=== PATIENT | male | born 1995 | race Caucasian/White ===

== ENCOUNTER 2017-05-26 12:00 | Emergency (ER) | payer BC ==
[2017-05-26 12:14] VITALS: BP 104/86
--- NOTE | 2017-05-26 12:47 | UC ---
Throat Pain/Nasal Drew HPI - HPI Summary HPI Summary: FEVER, SORE THROAT AND FATIGUE SINCE YESTERDAY. NO ABDOMINAL PAIN. NO RASHES. PATIENT IS A PHYS ED STUDENT. - History of Current Complaint Chief Complaint: UCGeneralIllness Stated Complaint: FEVER ST Time Seen by Provider: 05/26/17 12:17 Hx Obtained From: Patient Onset/Duration: Gradual Onset, Lasting Days Severity: Moderate Cough: None Associated Signs & Symptoms: Positive: Hoarseness, Fever - Epiglottits Risk Factors Epiglottis Risk Factors: Negative - Allergies/Home Medications Allergies/Adverse Reactions: Allergies Allergy/AdvReac Type Severity Reaction Status Date / Time No Known Allergies Allergy Verified 05/26/17 12:08 PMH/Surg Hx/FS Hx/Imm Hx Previously Healthy: Yes - Surgical History Surgical History: None - Family History Known Family History: Negative: Renal Disease - Social History Occupation: Student Lives: Dormitory/Roommates Alcohol Use: Occasionally Substance Use Type: None Smoking Status (MU): Never Smoked Tobacco - Immunization History Most Recent Influenza Vaccination: February 2017 Review of Systems Constitutional: Fever, Fatigue Skin: Negative Eyes: Negative ENT: Sore Throat Respiratory: Negative Cardiovascular: Negative Gastrointestinal: Negative Genitourinary: Negative Motor: Negative Neurovascular: Negative Musculoskeletal: Negative Neurological: Negative Psychological: Negative Is Patient Immunocompromised?: No All Other Systems Reviewed And Are Negative: Yes Physical Exam Triage Information Reviewed: Yes Appearance: No Pain Distress, Well-Nourished, Ill-Appearing Vital Signs: Initial Vital Signs Temp 100.8 F 05/26/17 12:07 Pulse 106 05/26/17 12:07 Resp 16 05/26/17 12:07 BP 104/86 05/26/17 12:07 Pulse Ox 100 05/26/17 12:07 Vital Signs Reviewed: Yes Eye Exam: Normal ENT: Positive: Hearing grossly normal, Pharyngeal erythema, TMs normal, Tonsillar swelling Dental Exam: Normal Neck exam: Normal Neck: Positive: Supple, Nontender, No Lymphadenopathy Respiratory Exam: Normal Respiratory: Positive: Chest non-tender, Lungs clear, Normal breath sounds, No respiratory distress, No accessory muscle use Cardiovascular Exam: Normal Cardiovascular: Positive: RRR, No Murmur, Pulses Normal Abdominal Exam: Normal Abdomen Description: Positive: Nontender, No Organomegaly, Soft. Negative: Hepatomegaly, McBurney's Point Tenderness, Splenomegaly Musculoskeletal Exam: Normal Neurological Exam: Normal Psychological Exam: Normal Skin Exam: Normal Throat Pain/Nasal Course/Dx - Differential Dx/Diagnosis Differential Diagnosis/HQI/PQRI: Mononucleosis, Peritonsillar Abscess, Tonsillitis, Other - STREP C-G Provider Diagnoses: TONSILITIS Discharge - Discharge Plan Condition: Stable Disposition: HOME Prescriptions: Clindamycin Cap(NF) [Clindamycin Cap 300 mg Cap(NF)] 300 mg PO TID #21 cap Patient Education Materials: Tonsillitis (ED) Forms: *School Release Referrals: Non Staff,Doctor [Primary Care Provider] -
[2017-05-26 19:13] LABS: Add Diff/Slide Review? Slide Review Added; Comments Flag Yes; Hematocrit 42 % (42-52); Hemoglobin 14.2 g/dl (14.0-18.0); Mean Corpuscular HGB Conc 34 g/dl (31-36); Mean Corpuscular Hemoglobin 30 pg (27-31); Mean Corpuscular Volume 89 fL (80-94); Mean Platelet Volume 9 um3 (7.4-10.4); Red Blood Count 4.67 10^6/ul (4.0-5.4); Red Cell Distribution Width 13 % (10.5-15); White Blood Count 13.9 10^3/ul (3.5-10.8)
[2017-05-26 19:18] LABS: Manual Entry Verification MER0007; Mono Internal Control QC Line Present
== END 2017-05-26 12:52 | disposition home or self-care (01) ==
LOC: UCCORT 12:00
DX: J03.90 Acute tonsillitis, unspecified (principal)
CPT/HCPCS: 36415; 85025; 86308; 87070; 87651; 99212; G0463

== ENCOUNTER 2017-06-06 21:54 | Emergency (ER) | payer BC ==
--- NOTE | 2017-06-06 22:09 | ED ---
Laceration/Wound HPI - HPI Summary HPI Summary: 21 year old male presents with left hand laceration secondary to glass. - History of Current Complaint Stated Complaint: LEFT HAND LAC Time Seen by Provider: 06/06/17 22:09 Hx Obtained From: Patient Onset/Duration: Sudden Onset Onset Severity: Moderate Current Severity: Moderate Pain Scale Used: 0-10 Numeric - 3 - Allergy/Home Medications Allergies/Adverse Reactions: Allergies Allergy/AdvReac Type Severity Reaction Status Date / Time No Known Allergies Allergy Verified 06/06/17 22:11 PMH/Surg Hx/FS Hx/Imm Hx Previously Healthy: Yes Endocrine/Hematology History: Denies: Hx Diabetes Cardiovascular History: Denies: Hx Hypertension, Hx Pacemaker/ICD History: Denies: Hx Renal Disease Sensory History: Denies: Hx Hearing Aid Psychiatric History: Denies: Hx Panic Disorder - Family History Known Family History: Negative: Renal Disease - Social History Alcohol Use: Occasionally Substance Use Type: Reports: None Smoking Status (MU): Never Smoked Tobacco Review of Systems Constitutional: Negative Eyes: Negative ENT: Negative Cardiovascular: Negative Respiratory: Negative Gastrointestinal: Negative Genitourinary: Negative Musculoskeletal: Negative Positive: Other - left hand laceration All Other Systems Reviewed And Are Negative: Yes Physical Exam Triage Information Reviewed: Yes Vital Signs Reviewed: Yes Appearance: Positive: Well-Appearing Skin: Positive: Other - left hand laceration Procedures - Laceration/Wound Repair 2 Location: upper extremity - left hand Description: Linear Laceration/Wound Explored: clean Closure: Skin Adhesive Sterile Dressing Applied?: Yes - < 2.5 cm Laceration Repair Course/Dx - Clinical Impression Provider Diagnoses: Laceration of left hand Discharge - Discharge Plan Condition: Stable Disposition: HOME Prescriptions: Cephalexin CAP* [Keflex CAP*] 500 mg PO TID #21 cap Patient Education Materials: Soft Tissue Foreign Body (ED) Forms: *School Release Referrals: Dwight Vasquez MD [Medical Doctor] - Non Staff,Doctor [Primary Care Provider] -
[2017-06-06 22:11] VITALS: BP 152/70
[2017-06-06] MEDS ORDERED: Cephalexin CAP* 500 MG PO ONE (22:21)
--- NOTE | 2017-06-07 07:27 | RAD ---
INDICATION: Left hand laceration with glass. TECHNIQUE: 4 views of the left hand were obtained. FINDINGS: The bones are in normal alignment. No fracture or radiopaque foreign body is seen. Joint spaces appear maintained. IMPRESSION: NO RADIOPAQUE FOREIGN BODY IS SEEN.
== END 2017-06-06 22:51 | disposition home or self-care (01) ==
LOC: UCCORT 21:54
DX: S61.412A Laceration without foreign body of left hand, initial encounter (principal); W25.XXXA Contact with sharp glass, initial encounter; Y93.9 Activity, unspecified; Y92.9 Unspecified place or not applicable
CPT/HCPCS: 12001; 99212; 99213; A9270-GY; G0463

== ENCOUNTER 2017-11-21 12:50 | Emergency (ER) | payer BC ==
[2017-11-21 13:42] VITALS: BP 132/62
--- NOTE | 2017-11-21 14:01 | UC ---
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 NO FATIGUE. + BODYACHES. - History of Current Complaint Chief Complaint: UCGeneralIllness Stated Complaint: SORE THROAT Time Seen by Provider: 11/21/17 13:55 Hx Obtained From: Patient Onset/Duration: Gradual Onset Timing: Constant Pain Intensity: 7 Aggravating: NOTHING Alleviating: NOTHING Associated Signs & Symptoms: Positive: Fever - Allergy/Home Medications Allergies/Adverse Reactions: Allergies Allergy/AdvReac Type Severity Reaction Status Date / Time No Known Allergies Allergy Verified 11/21/17 13:39 Home Medications: Home Medications Ibuprofen TAB* [Advil TAB*] 400 mg PO Q6H PRN 11/21/17 [History Confirmed ] PMH/Surg Hx/FS Hx/Imm Hx Previously Healthy: Yes - Surgical History Surgical History: None - Family History Known Family History: Positive: None Negative: Renal Disease - Social History Occupation: Student Lives: Dormitory/Roommates Alcohol Use: Occasionally Substance Use Type: None Smoking Status (MU): Never Smoked Tobacco - Immunization History Most Recent Influenza Vaccination: February 2017 Vaccination Up to Date: Yes Review of Systems Constitutional: Fever Skin: Negative Eyes: Negative ENT: Sore Throat Respiratory: Negative Cardiovascular: Negative Gastrointestinal: Negative Genitourinary: Negative Motor: Negative Neurovascular: Negative Musculoskeletal: Myalgia Neurological: Negative Psychological: Negative Is Patient Immunocompromised?: No All Other Systems Reviewed And Are Negative: Yes Physical Exam Triage Information Reviewed: Yes Appearance: Well-Appearing Vital Signs: Initial Vital Signs Temp 98.7 F 11/21/17 13:35 Pulse 71 11/21/17 13:35 Resp 17 11/21/17 13:35 BP 132/62 11/21/17 13:35 Pulse Ox 97 11/21/17 13:35 Vital Signs Reviewed: Yes Eyes: Positive: Conjunctiva Clear ENT: Positive: Pharyngeal erythema, TMs normal, Tonsillar swelling - MILD WITH ERYTHEMA, Uvula midline. Negative: Nasal congestion, Nasal drainage, Tonsillar exudate, Trismus, Muffled voice, Hoarse voice Neck: Positive: Supple, Enlarged Nodes @ - PERITONSILAR WITH TENDERNESS Respiratory: Positive: Lungs clear, Normal breath sounds Cardiovascular: Positive: RRR, No Murmur Abdomen Description: Positive: Nontender, No Organomegaly, Soft Bowel Sounds: Positive: Present Musculoskeletal: Positive: ROM Intact Neurological: Positive: Alert Psychological: Positive: Age Appropriate Behavior Skin Exam: Normal Diagnostics - Laboratory Diagnostic Studies Completed/Ordered: rapid strep=neg. Course/Dx - Course Course Of Treatment: rapid strep=neg; however, no uri and centor score suppotrs tx for strep throat. also, the rapid strep is not 100% thus I am going to tx for presumptive strep throat - Differential Dx - Multi-Symptom Provider Diagnoses: PHARYNGITIS Discharge - Sign-Out/Discharge Documenting (check all that apply): Discharge/Admit/Transfer - Discharge Plan Condition: Stable Disposition: HOME Prescriptions: Penicillin VK 500 MG TAB(NF) [Penicillin VK 500 mg Tab] 500 mg PO BID #20 tab Patient Education Materials: Pharyngitis (ED) Additional Instructions: [facility] for a recheck or sooner if worse. - Billing Disposition and Condition Condition: STABLE Disposition: HOME
== END 2017-11-21 14:16 | disposition home or self-care (01) ==
LOC: UCCORT 12:50
DX: J02.9 Acute pharyngitis, unspecified (principal)
CPT/HCPCS: 87651; 99212; G0463

== ENCOUNTER 2018-04-18 21:05 | Emergency (ER) | payer BC ==
[2018-04-18 21:44] VITALS: BP 120/76
[2018-04-18] MEDS ORDERED: Penicillin VK TAB* 250 MG PO ONE (22:11)
--- NOTE | 2018-04-18 22:16 | UC ---
Throat Pain/Nasal Drew HPI - HPI Summary HPI Summary: 22-year-old male presents with 3 day history of sore throat. Associated with some chills, general malaise, and fatigue. Denies fever, ear pain or drainage, nasal congestion or drainage, chest pain, shortness of breath, cough, abdominal pain, nausea, or vomiting. - History of Current Complaint Chief Complaint: UCRespiratory Stated Complaint: SORE THROAT Time Seen by Provider: 04/18/18 21:52 Hx Obtained From: Patient Onset/Duration: Gradual Onset, Lasting Days - 3 Severity: Moderate Pain Intensity: 5 Associated Signs & Symptoms: Negative: Dysphagia, Wheezing, Hoarseness, Sinus Discomfort, Nasal Discharge, Fever, Vomiting, Rash - Allergies/Home Medications Allergies/Adverse Reactions: Allergies Allergy/AdvReac Type Severity Reaction Status Date / Time No Known Allergies Allergy Verified 04/18/18 21:44 PMH/Surg Hx/FS Hx/Imm Hx Previously Healthy: Yes - denies significant past medical history - Surgical History Surgical History: None - Family History Family History: Noncontributory - Social History Occupation: Student Lives: Dormitory/Roommates Alcohol Use: Weekly Substance Use Type: None Smoking Status (MU): Never Smoked Tobacco - Immunization History Most Recent Influenza Vaccination: February 2017 Vaccination Up to Date: Yes Review of Systems Constitutional: Chills Skin: Negative Eyes: Negative ENT: Sore Throat Respiratory: Negative Cardiovascular: Negative Gastrointestinal: Negative Is Patient Immunocompromised?: No All Other Systems Reviewed And Are Negative: Yes Physical Exam Triage Information Reviewed: Yes Appearance: Well-Appearing, No Pain Distress, Well-Nourished Vital Signs: Initial Vital Signs Temp 98.2 F 04/18/18 21:37 Pulse 82 04/18/18 21:37 Resp 16 04/18/18 21:37 BP 120/76 04/18/18 21:37 Pulse Ox 97 04/18/18 21:37 Vital Signs Reviewed: Yes Eyes: Positive: Conjunctiva Clear. Negative: Discharge ENT: Positive: Pharyngeal erythema, TMs normal, Tonsillar swelling - 3+, Uvula midline. Negative: Nasal congestion, Nasal drainage, Tonsillar exudate, Muffled voice, Hoarse voice, Sinus tenderness Neck: Positive: Supple, Nontender, Enlarged Nodes @ - Anterior cervical with tenderness Respiratory: Positive: Lungs clear, Normal breath sounds, No respiratory distress Cardiovascular: Positive: RRR, No Murmur Abdomen Description: Positive: Nontender, No Organomegaly, Soft. Negative: Distended, Guarding Neurological: Positive: Alert Skin Exam: Normal Diagnostics - Laboratory Diagnostic Studies Completed/Ordered: rapid strep positive Throat Pain/Nasal Course/Dx - Course Course Of Treatment: 22-year-old male presents with 3 day history of sore throat , chills, general malaise, and fatigue. Rapid strep positive. Will give 10 day course of PenVK and recommend symtomatic treatment. - Differential Dx/Diagnosis Differential Diagnosis/HQI/PQRI: Peritonsillar Abscess, Pharyngitis, Tonsillitis , URI Provider Diagnoses: strep pharyngitis Discharge - Sign-Out/Discharge Documenting (check all that apply): Patient Departure All imaging exams completed and their final reports reviewed: No Studies - Discharge Plan Condition: Stable Disposition: HOME Prescriptions: Penicillin V Potassium 500 mg PO BID #20 tablet Patient Education Materials: Strep Throat (ED) Referrals: No Primary Care Phys,NOPCP [Primary Care Provider] - Additional Instructions: Your rapid strep test in the clinic today was positive for strep throat. Start penicillin 500 mg 1 tab twice a day for 10 days. Be sure to finish the entire prescription even if you're feeling better. Saltwater gargles several times a day for the sore throat. Take acetaminophen (Tylenol) or ibuprofen (Advil, Motrin) according to directions as needed for any aches pains or fever. You may also use Chloraseptic spray or Cepacol lozenges as needed for temporary relief. Make sure you drinking plenty of fluids in order to stay well hydrated. Return here or follow-up with your primary care provider if no improvement in symptoms. Seek immediate medical attention in the emergency room if you have persistent fever greater than 100.5 F despite taking ibuprofen or acetaminophen, you're unable to swallow, have difficulty breathing, or any worsening of symptoms. - Billing Disposition and Condition Condition: STABLE Disposition: Home
== END 2018-04-18 22:24 | disposition home or self-care (01) ==
LOC: UCCORT 21:05
DX: J02.0 Streptococcal pharyngitis (principal)
CPT/HCPCS: 87651; 99212; A9270-GY; G0463

== ENCOUNTER 2019-04-27 10:03 | Emergency (ER) | payer BC ==
[2019-04-27 11:49] VITALS: BP 134/76
--- NOTE | 2019-04-27 12:48 | UC ---
UC General HPI - HPI Summary HPI Summary: 23-year-old male who had nausea and vomiting yesterday and the last time he vomited was approximately 11 PM last evening. He has been able to retain kevin monet. - History of Current Complaint Chief Complaint: UCGeneralIllness Stated Complaint: FEVER,NAUSEA Time Seen by Provider: 04/27/19 12:23 Hx Obtained From: Patient Onset/Duration: Sudden Onset, Resolved Timing: Intermittent Episodes Lasting: Onset Severity: Mild Current Severity: Mild Pain Intensity: 5 Associated Signs & Symptoms: Positive: Nausea, Vomiting - Last time patient vomited was last evening. - Allergy/Home Medications Allergies/Adverse Reactions: Allergies Allergy/AdvReac Type Severity Reaction Status Date / Time No Known Allergies Allergy Verified 04/27/19 11:50 Home Medications: Home Medications Acetaminophen [Tylenol] 1 tab PO ONCE 04/27/19 [History Confirmed 04/27/19] Phenylephrine/Acetaminophn/Cpm [Sinus Congestion-Pain Caplet] 1 tab PO ONCE 11/10 [History Confirmed 04/27/19] PMH/Surg Hx/FS Hx/Imm Hx Previously Healthy: Yes - Surgical History Surgical History: None - Family History Known Family History: Positive: None Negative: Renal Disease Family History: Noncontributory - Social History Occupation: Student Lives: Dormitory/Roommates Alcohol Use: Weekly Substance Use Type: None Smoking Status (MU): Never Smoked Tobacco - Immunization History Most Recent Influenza Vaccination: February 2017 Vaccination Up to Date: Yes Review of Systems All Other Systems Reviewed And Are Negative: Yes Gastrointestinal: Positive: Vomiting, Nausea - Nausea and vomiting have resolved. Patient states he still has some muscle discomfort from vomiting so much but no specific abdominal pain. Is Patient Immunocompromised?: No Physical Exam Triage Information Reviewed: Yes Appearance: Well-Appearing, No Pain Distress, Well-Nourished Vital Signs: Initial Vital Signs Temp 98.3 F 04/27/19 11:44 Pulse 68 04/27/19 11:44 Resp 18 04/27/19 11:44 BP 134/76 04/27/19 11:44 Pulse Ox 98 04/27/19 11:44 Vital Signs Reviewed: Yes Eyes: Positive: Conjunctiva Clear ENT: Positive: Hearing grossly normal, Pharynx normal, TMs normal, Uvula midline Neck: Positive: Supple, Nontender, No Lymphadenopathy Respiratory: Positive: Lungs clear, Normal breath sounds, No respiratory distress, No accessory muscle use Cardiovascular: Positive: RRR, No Murmur, Pulses Normal, Brisk Capillary Refill Abdomen Description: Positive: Nontender, No Organomegaly, Soft. Negative: CVA Tenderness (R), CVA Tenderness (L), Distended, Guarding, Hepatomegaly, McBurney' s Point Tenderness, Splenomegaly Bowel Sounds: Positive: Hyperactive Musculoskeletal Exam: Normal Neurological Exam: Normal Psychological Exam: Normal Skin Exam: Normal Course/Dx - Course Course Of Treatment: The patient is now retaining fluids and has had no further vomiting since last evening. I'm going to give him. Prescription for Zofran and no school classes today. He is to follow up at the [facility] if no improvement or go to the emergency room if any worsening symptoms. - Diagnoses Provider Diagnosis: Vomiting, Nausea Discharge ED - Sign-Out/Discharge Documenting (check all that apply): Patient Departure All imaging exams completed and their final reports reviewed: No Studies - Discharge Plan Condition: Fair Disposition: HOME Prescriptions: Ondansetron ODT TAB* [Zofran 4 MG Odt TAB*] 4 mg PO Q8H PRN #10 tab.odt PRN Reason: Nausea Patient Education Materials: Acute Nausea and Vomiting (ED) Forms: *School Release Referrals: No Primary Care Phys,NOPCP [Primary Care Provider] - SOLEDAD COURTNEY [[employer], APPLICATION, OTHER] - Additional Instructions: Go home and rest. Increase fluids. Gradually increase to regular diet as the day progresses starting with kevin monet, Coca-Cola, soup broth, Tea and toast, chicken noodle soup. Avoid spicy and greasy foods. Follow-up at the [facility] if no improvement or the emergency room if you continue having vomiting to the point where you feel like to going to pass out. - Billing Disposition and Condition Condition: FAIR Disposition: Home
== END 2019-04-27 12:48 | disposition home or self-care (01) ==
LOC: UCCORT 10:03
DX: R11.2 Nausea with vomiting, unspecified (principal)
CPT/HCPCS: 99212; G0463